=== PATIENT | male | born 1980 | race Hispanic/Latino ===

== ENCOUNTER 2020-08-14 06:56 | Emergency (ER) | payer BC ==
--- OUTSIDE RECORDS SUMMARY | 2020-08-14 06:58 | XMS REPORT | Clinical Summary ---
:1980 Author Organization [facility] Address [address] [place] [address] Care Team Providers Name Role Phone Celestina Quinteros MD Primary Care Provider [phone] Allergies No Known Active Allergies Medications No known medications Active Problems No known active problems Surgical History Surgery Date Site/Laterality Comments COLONOSCOPY Family History Medical History Relation Name Comments No Known Problems Father Heart disease Maternal Grandfather pacemaker Dementia Maternal Grandmother Ovarian cancer Mother metastatic to jaden ngs Diabetes Paternal Grandfather Relation Name Status Comments Father Alive Maternal Grandfather Maternal Grandmother Mother Paternal Grandfather Social History Tobacco Use Types Packs/Day Years Used Date Never Smoker Smokeless Tobacco: Never Used Tobacco Cessation: Counseling Given: No Alcohol Use Drinks/Week oz/Week Comments Yes 0-1 Standard drinks or equivalent 0.0 - 1.0 some weeks some, some weeks none; typically no more than 12 in a week Sex Assigned at Date Recorded Not on file Last Filed Vital Signs Not on file Plan of Treatment Health Maintenance Due Date Last Done Comments COVID-19 VACCINE (#1) 1995 INFLUENZA VACCINE 03/19/2020 Results Not on fileafter 08/14/2019 (Home) [place] [address] Advance Directives For more information, please contact: [phone] Type Date Recorded 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
[2020-08-14] MEDS ORDERED: NA CHLORIDE 0.9% 1,000 ML ONE (08:33)
--- NOTE | 2020-08-14 09:37 | ER ---
Nurse's Notes [facility] Name: Tank Luke Age: 40 yrs Sex: Male : 1980 Arrival Date: 08/14/2020 Time: 06:57 Bed 25 Private MD: Diagnosis: Viral syndrome;Headache;Malaise and fatigue Presentation: 08/14 07:11 Chief complaint: Patient states: was tested for COVID on [place] and have not iw gotten results , has headache, dizzy, weak, cold sweats, no vomiting or diarrhea, no appetite, symptoms started last Saturday, no respiratory symptoms. Coronavirus screen: chills, fatigue, headache, muscle pain, nausea. Ebola Screen: Patient negative for fever greater than or equal to 101.5 degrees Fahrenheit, and additional compatible Ebola Virus Disease symptoms Patient denies exposure to infectious person. Patient denies travel to an Ebola-affected area in the 21 days before illness onset. No symptoms or risks identified at this time. Initial Sepsis Screen: Does the patient meet any 2 criteria? No. Patient's initial sepsis screen is negative. Does the patient have a suspected source of infection? No. Patient's initial sepsis screen is negative. Risk Assessment: Do you want to hurt yourself or someone else? Patient reports no desire to harm self or others. Onset of symptoms was August 07, 2020. 07:11 Method Of Arrival: Ambulatory iw 07:11 Acuity: JUAN 3 iw Historical: - Allergies: 07:14 No Known Allergies; iw - Home Meds: 07:14 None [Active]; iw - PMHx: 07:14 None; iw - PSHx: 07:14 None; iw - Immunization history:: Adult Immunizations not up to date. - Social history:: Smoking status: Patient denies any tobacco usage or history of. - Family history:: not pertinent. - Hospitalizations: : No recent hospitalization is reported. Screenin:57 Abuse screen: Denies threats or abuse. Denies injuries from another. Nutritional iw screening: No deficits noted. Tuberculosis screening: No symptoms or risk factors identified. Fall Risk None identified. Assessment: 07:15 General: Appears uncomfortable, Behavior is calm, cooperative. Pain: Complains of pain iw in head. GI: Abdomen is non-distended, Reports nausea. 08:23 Reassessment: Patient appears in no apparent distress at this time. No changes from dm5 previously documented assessment. Patient and/or family updated on plan of care and expected duration. Pain level reassessed. Patient is alert, oriented x 3, equal unlabored respirations, skin warm/dry/pink. Vital Signs: 07:11 BP 119 / 75; Pulse 85; Resp 18 S; Temp 98.7; Pulse Ox 95% on R/A; Weight 131.54 kg; iw Height 5 ft. 10 in. (177.80 cm); Pain 7/10; 07:11 Body Mass Index 41.61 (131.54 kg, 177.80 cm) iw Vera Coma Score: 09:36 Eye Response: spontaneous(4). Verbal Response: oriented(5). Motor Response: obeys rn commands(6). Total: 15. ED Course: 06:57 Patient arrived in ED. am2 07:14 Triage completed. iw 07:14 Arm band placed on. iw 07:15 Patient has correct armband on for positive identification. iw 07:43 Donell Morales MD is Attending Physician. rn 07:57 Alaina Valencia RN is Primary Nurse. iw 08:23 Flu Sent. iw 08:23 Strep Sent. iw 10:07 No provider procedures requiring assistance completed. IV discontinued, intact, iw bleeding controlled, No redness/swelling at site. Pressure dressing applied. Administered Medications: 08:21 Drug: NS 0.9% 1000 ml Route: IV; Rate: 1000 ml; Site: right antecubital; iw Outcome: 09:37 Discharge ordered by . rn 10:07 Discharged to home ambulatory, with family. iw 10:07 Condition: good 10:07 Discharge instructions given to patient. 10:08 Patient left the ED. iw Signatures: Mary Leon RN RN dm5 Alaina Valencia RN RN iw Donell Morales MD MD rn Moreno, Amanda am2
--- NOTE | 2020-08-14 09:38 | EDPHYS ---
Physician Documentation [facility] Name: Tank Luke Age: 40 yrs Sex: Male : 1980 Arrival Date: 08/14/2020 Time: 06:57 Bed 25 Private MD: ED Physician Donell Mroales HPI: 08/14 08:14 This 40 yrs old Male presents to ER via Ambulatory with complaints of Nausea, rn Headache, cold sweat, Cough. 08:14 The patient complains of pain to the top of head. Onset: The symptoms/episode rn began/occurred 1 week(s) ago. Severity of symptoms: At its worst the pain was moderate, in the emergency department the pain has improved. The symptoms are alleviated by nothing. the symptoms are aggravated by nothing. The patient has not experienced similar symptoms in the past. The patient has not recently seen a physician. Reports 1 week of intermittent chills, sweating, headache, decreased appetite, fatigue, generalized weakness. No sob, no abd pain, no vomiting/diarrhea/blood in stool. States boss diagnosed with covid. Covid tested at [facility], results likely coming in tomorrow. . Historical: - Allergies: 07:14 No Known Allergies; iw - Home Meds: 07:14 None [Active]; iw - PMHx: 07:14 None; iw - PSHx: 07:14 None; iw - Immunization history:: Adult Immunizations not up to date. - Social history:: Smoking status: Patient denies any tobacco usage or history of. - Family history:: not pertinent. - Hospitalizations: : No recent hospitalization is reported. ROS: 08:14 Constitutional: Negative for weight loss, Eyes: Negative for injury, pain, redness, and rn transport, ENT: Negative for injury, pain, and discharge, Neck: Negative for injury, pain, and swelling, Cardiovascular: Negative for chest pain, palpitations, and edema, Respiratory: Negative for shortness of breath, wheezing, and pleuritic chest pain, Abdomen/GI: Negative for abdominal pain, vomiting, diarrhea, and constipation, Back: Negative for injury and pain, : Negative for injury, bleeding, discharge, and swelling, MS/Extremity: Negative for injury and deformity, Skin: Negative for injury, rash, and discoloration, Neuro: Negative for numbness, tingling, and seizure. Exam: 08:14 Constitutional: This is a well developed, well nourished patient who is awake, alert, rn and in no acute distress. Ambulatory to room without difficulty. Head/Face: Normocephalic, atraumatic. Eyes: Pupils equal round and reactive to light, extra-ocular motions intact. Lids and lashes normal. Conjunctiva and sclera are non-icteric and not injected. Cornea within normal limits. Periorbital areas with no swelling, redness, or edema. ENT: no stridor Neck: Trachea midline, no masses palpated, and no cervical lymphadenopathy. Supple, full range of motion without nuchal rigidity, or vertebral point tenderness. No Meningismus. Cardiovascular: Regular rate and rhythm. No pulse deficits. Respiratory: No increased work of breathing, no retractions or nasal flaring. Abdomen/GI: soft, non-tender Skin: Warm, dry MS/ Extremity: Pulses equal, no cyanosis. Neuro: Awake and alert, GCS 15, oriented to person, place, time, and situation. Cranial nerves II-XII grossly intact. Motor strength 5/5 in all extremities. Sensory grossly intact. Cerebellar exam normal. Normal gait. Vital Signs: 07:11 BP 119 / 75; Pulse 85; Resp 18 S; Temp 98.7; Pulse Ox 95% on R/A; Weight 131.54 kg; iw Height 5 ft. 10 in. (177.80 cm); Pain 7/10; 07:11 Body Mass Index 41.61 (131.54 kg, 177.80 cm) iw [place] Coma Score: 09:36 Eye Response: spontaneous(4). Verbal Response: oriented(5). Motor Response: obeys rn commands(6). Total: 15. MDM: 07:43 Patient medically screened. rn 09:36 Differential diagnosis: tension headache, vasomotor headache, viral syndrome, strep, rn COVID, flu. Data reviewed: vital signs, nurses notes, lab test result(s), and as a result, I will discharge patient. Counseling: I had a detailed discussion with the patient and/or guardian regarding: the historical points, exam findings, and any diagnostic results supporting the discharge/admit diagnosis, lab results, the need for outpatient follow up, to return to the emergency department if symptoms worsen or persist or if there are any questions or concerns that arise at home. Response to treatment: the patient's symptoms have mildly improved after treatment, and as a result, I will discharge patient. Special discussion: I discussed with the patient/guardian in detail that at this point there is no indication for admission to the hospital. It is understood, however, that if the symptoms persist or worsen the patient needs to return immediately for re-evaluation. 08/14 07:53 Order name: Flu rn 08/14 07:53 Order name: Strep rn 08/14 07:53 Order name: [place] Screen Profile; Complete Time: 09:36 rn 08/14 07:54 Order name: Influenza Screen (A ; Complete Time: 09:36 [facility] 08/14 07:54 Order name: Group A Streptococcus Rapid Sc; Complete Time: : [facility] 08/14 09:14 Order name: Throat Culture [facility] 08/14 07:53 Order name: IV Start; Complete Time: 08:23 rn Administered Medications: 08:21 Drug: NS 0.9% 1000 ml Route: IV; Rate: 1000 ml; Site: right antecubital; iw Disposition: 08/14/20 09:37 Discharged to Home. Impression: Viral syndrome, Headache, Malaise and fatigue. - Condition is Stable. - Discharge Instructions: General Headache Without Cause, Fatigue. - Medication Reconciliation Form, Thank You Letter, Antibiotic Education, Prescription Opioid Use form. - Follow up: Private Physician; When: As needed; Reason: Recheck today's complaints, Re-evaluation by your physician. - Problem is an ongoing problem. - Symptoms have improved. Signatures: Dispatcher [employer] Alaina Childers RN RN iw Nieto, Roman, MD MD overnight caregiver: (The following items were deleted from the chart) 10:08 09:37 08/14/2020 09:37 Discharged to Home. Impression: Viral syndrome; Headache; iw Malaise and fatigue. Condition is Stable. Forms are Medication Reconciliation Form, Thank You Letter, Antibiotic Education, Prescription Opioid Use. Follow up: Private Physician; When: As needed; Reason: Recheck today's complaints, Re-evaluation by your physician. Problem is an ongoing problem. Symptoms have improved. rn
[2020-08-14 10:18] VITALS: BP 119/75; TEMP 98.7; O2SAT 95
== END 2020-08-14 10:08 | disposition home or self-care (01) ==
LOC: ER 06:56
DX: B34.9 Viral infection, unspecified (principal); R53.81 Other malaise; R53.83 Other fatigue
CPT/HCPCS: 87070; 36415; 86308; 87081; 87804 ×2; 99283; J7030

== ENCOUNTER 2023-09-21 12:45 | Inpatient (IN) | payer BC ==
[2023-09-21] MEDS: Ringers Lactate 1,000 ML IV ONE (14:04)
[2023-09-21] MEDS: SUCCINYLCHOLINE 20 MG/ML (10 ML) IV ONE (14:13)
[2023-09-21] MEDS ORDERED: propofoL 200 MG/20 ML VIAL IV ONE (14:15)
[2023-09-21] MEDS ORDERED: FENTANYL CITR 100 MCG/2 ML ONE (14:15)
[2023-09-21] MEDS ORDERED: ROCURONIUM 50 MG/5 ML VIAL IV ONE (14:15)
[2023-09-21] MEDS ORDERED: MIDAZOLAM HCL 2 MG/2 ML INJ ONE (14:15)
[2023-09-21] MEDS ORDERED: GLYCOPYRROLATE 0.2 MG/ML SYR ONE ×5 (14:58→15:13)
[2023-09-21] MEDS ORDERED: EPHEDRINE SULF 50 MG/ML VIAL ONE (15:01)
[2023-09-21] MEDS ORDERED: NEOSTIGMINE 1 MG/ML -10 ML VIAL ONE (15:12)
--- NOTE | 2023-09-21 15:24 | P.OP ---
Date of Service: 09/21/23 Preop diagnosis: Acute appendicitis Postop diagnosis: Acute suppurative appendicitis Procedure performed: Laparoscopic appendectomy Surgeon: Dannie Bryant MD Photo Tube Assembler: None Estimated blood loss: Minimal Specimen: Appendix Findings: As above Anesthesia: General Complications: None Drains: None Fluids and blood products: Nonapplicable Disposition: Recovery room Operative note: Patient brought to the OR and placed in supine position. General anesthesia begun. Patient prepped and draped in the usual sterile fashion. Marcaine 0.5% infiltrated locally. 15 blade used to make a 1.5 cm supraumbilical midline incision. Subcutaneous tissue divided and bleeding controlled cautery. Fascia identified and divided. #1 Vicryl stay suture placed. Peritoneal cavity entered with sharp and blunt dissection. 12 mm trocar placed into the peritoneal cavity under direct vision. Pneumoperitoneum established. Two 5 mm trocars placed under direct vision. 1 trocar placed in the left lower quadrant and 1 trocar placed in the suprapubic region. Laparoscopy revealed acute suppurative appendicitis. Endo YIFAN stapling device used to divide the base of the appendix on the cecum under direct vision. LigaSure used to divide the mesoappendix. Appendix retrieved through the umbilicus via Endo Catch bag. Right lower quadrant irrigated. Effluent clear no evidence of bleeding or bowel injury noted. All trocars removed under direct vision. Stay sutures tied to each other to reapproximate the fascial defect. Subcutaneous wounds irrigated and bleeding controlled cautery. 3-0 chromic used to close subcutaneous tissue. Parrish used to close skin. Sterile dressing applied. Patient awakened and taken to recovery room in good general condition. CC:
[2023-09-21] MEDS ORDERED: ONDANSETRON 4 MG/2 ML VIAL IV PRN (15:31)
[2023-09-21] MEDS ORDERED: HYDROMORPHONE HCL 1 MG/ML INJ IV PRN (15:31)
[2023-09-21] MEDS: KETOROLAC 30 MG/ML INJ ONE (15:38)
[2023-09-21] MEDS: Ringers Lactate 1,000 ML IV SCH (16:00)
[2023-09-21 16:10] VITALS: BMI 45.0
[2023-09-21] MEDS: PIPER TAZO 3.375 GM in NA CHLORIDE 0.9% 100 ML IV SCH (16:20)
[2023-09-21] MEDS: HYDROCODONE/APAP 7.5/325 MG TAB PO PRN (22:41)
[2023-09-21] MEDS: PHENAZOPYRIDINE 100MG TAB PO PRN (23:40)
[2023-09-22 07:13] LABS: Absolute Lymphocytes (CBC) 2.8 K/uL (0.7-4.9); Lymphocytes % 24.6 % (15.3-44.8); MCV 85.6 fL (80-100); MPV 10.3 fL (7.6-11.3); Platelets 244 thou/uL (152-406); RBC Red Blood Cell Count 4.68 M/uL (4.33-5.43)
--- NOTE | 2023-09-22 10:27 | PN ---
Date of Progress Note: 09/22/2023 Subjective: The patient is awake, alert. No complaint. He is urinating better. Had some dysuria l ast night and Pyridium was provided. The patient is able to urinate without any difficulties now. Objective: Vital Signs: Stable. He is afebrile. Abdomen: Benign. Laboratory Data: His white count is 11,000. Assessment: Status post laparoscopic appendectomy for acute suppurative appendicitis. Plan: Continue one more day of IV antibiotics, as he had pretty significant suppurative appendicitis . Likely discharge tomorrow morning. The patient is clinically doing well and improving. /MODL Voice ID: [id number] Report ID: [id number]
[2023-09-22] MEDS: NA CHLORIDE 0.9% 100 ML ONE ×2 (23:37→23:38)
[2023-09-23] MEDS: Ringers Lactate 1,000 ML IV SCH (00:03)
[2023-09-23 07:28] LABS: Absolute Lymphocytes (CBC) 2.9 K/uL (0.7-4.9); Hematocrit 40.3 % (39.6-49.0); Lymphocytes % 34.6 % (15.3-44.8); MCV 85.3 fL (80-100); MPV 10.5 fL (7.6-11.3); Platelets 248 thou/uL (152-406); RBC Red Blood Cell Count 4.72 M/uL (4.33-5.43)
[2023-09-23 09:09] VITALS: BP 138/71; TEMP 96.9
[2023-09-23 09:30] VITALS: O2SAT 90
--- NOTE | 2023-09-23 10:00 | DS ---
Date of Discharge: 09/23/2023 Admitting Diagnosis: Acute appendicitis. Discharge Diagnosis: Acute suppurative appendicitis. Procedure Performed: Laparoscopic appendectomy. Hospital Course: The patient is a 43-year-old gentleman, underwent the aforementioned procedure on and then postoperatively had leukocytosis and he was kept an extra day for IV antibiotics. T sylvia, he is tolerating diet, ambulating, pain controlled with p.o. pain medication, afebrile. White count is normal. Therefore, the patient will be discharged to home. Disposition: Home. Condition: Stable. Discharge Instructions: Resume home medications and diet. Activity as tolerated. No heavy lifting. Remove outer dressing in a.m. shower. Keep wound clean and dry. Follow up in my office in 1 week. Call for appointment. Zohra Bowles5, Yris, and Janeen called into the patient's pharmacy. OLIVIA/RAYNAL Voice ID: [id number] Report ID: [id number]
--- NOTE | 2023-09-25 09:00 | HP ---
Date of Admission: 09/21/2023 This is a re-dictation. I had originally done the H and P before the patient underwent surgery, and I do not know what happened to that dictation, and I was asked to re-dictate this. Chief Complaint: Abdominal pain. History Of Present Illness: The patient is a 43-year-old gentleman who presented to [facility] with abdominal pain. Workup revealed acute appendicitis. [facility]. He is complaining of right lower quadrant pain. No nausea. No v omiting. No anorexia. No diarrhea. No constipation. No blood per rectum. No dysuria, hematuria. No sore throat, runny nose, cough, headaches, dizziness. No chest pain. Review of Systems: Otherwise unremarkable. Past Medical History: Negative. Past Surgical History: Negative. Allergies: NO ALLERGIES. Social History: The patient denies smoking or drinking. Family History: Noncontributory. Physical Examination: Vital Signs: Stable. Afebrile. General: Awake, alert, oriented x3. Head and Neck: No masses. Chest: Clear. Heart: S1, S2. Abdomen: Soft, nondistended. Positive bowel sounds. Positive right lower quadrant tenderness with minimal rebound. No rigidity or guarding. Extremities: Adequately perfused. Nontender. Neuro: Nonfocal. The patient has a slight leukocytosis and CT scan of the abdomen and pelvis consistent with acute angelika endicitis. Assessment: Acute appendicitis. Plan: Admit. N.p.o. IV fluid. IV antibiotics. To the OR for laparoscopic appendectomy, possible open. The patient understands the risks, benefits, and alternatives and agrees to procedure. /MODL Voice ID: [id number]
== END 2023-09-23 10:05 | disposition home or self-care (01) | DRG 399 ==
LOC: ERHOLD 12:45 → UNDOADMIN 12:45 → ERHOLD 14:12 → 4TH 14:40 → OBSVTOIN 15:31
PROVIDERS: ADMIT Surgery; ATTEND Surgery
PROC: 0DTJ4ZZ Resection of Appendix, Percutaneous Endoscopic Approach (ICD-10-PCS; principal; 2023-09-21 15:00)
DX: K35.80 Unspecified acute appendicitis (principal)
CPT/HCPCS: 36415; 85025; 88302; 88304; 94010; G0378; J1170; J2250; J2405; J2543; J2704; J2710; J3010; J7120